=== PATIENT | female | born 1995 | race Caucasian/White ===

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

== ENCOUNTER → 2017-05-18 | Outpatient (CLI) | payer BC ==
--- NOTE | 2017-05-18 14:50 | ECHOCARDIOGRAM REPORT ---
*NOTICE TO RECEIVING CONSTITUTION PARTY AGENCY This information is strictly Confidential and protected under [place] law. [place] law prohibits you from making any further disclosure of this information unless further disclosure is expressly permitted by the written consent of the person to whom it pertains or is authorized by law. A general authorization for the release of medical or other information is not sufficient for this purpose. Hospital accepts no responsibility if the information is made available to any other person, INCLUDING THE PATIENT. Interpretation Summary * Name: MELISSA BAIRES Study Date: 05/18/2017 12:57 PM BP: 123/66 mmHg * Patient Location: [facility] HR: 83 * : 1995 (M/d/yyyy) Gender: Female Height: 66 in * Age: 22 yrs Ethnicity: [place] Weight: 130 lb * Ordering Physician: Familia Pereira * Referring Physician: Familia Pereira * Performed By: Ciara Munoz * * Reason For Study: MURMURS, CHEST PAIN * BSA: 1.7 m2 * This was essentially a normal study. * -- Conclusions -- * Left ventricular systolic function is normal. * Normal diastolic function * The aortic valve is not well visualized. Procedure Details * A complete two-dimensional transthoracic echocardiogram was performed (2D, M-mode, Doppler and color flow Doppler). Left Ventricle * The left ventricle is normal in size. * There is normal left ventricular wall thickness. * Ejection Fraction = >70 %. * Left ventricular systolic function is normal. * Normal diastolic function * The left ventricular wall motion is normal. Right Ventricle * The right ventricle is normal in size and function. Atria * The left atrial size is normal. * Right atrial size is normal. Mitral Valve * The mitral valve anatomy is normal. * There is no mitral regurgitation noted. Tricuspid Valve * The tricuspid valve anatomy is normal. * Significant tricuspid regurgitation is absent. Aortic Valve * The aortic valve is not well visualized. * No hemodynamically significant valvular aortic stenosis. * There is no significant aortic regurgitation. Great Vessels * The aortic root is normal size. * The aortic root and proximal ascending aorta are normal sized. Pericardium/Pleural * There is no pericardial effusion. MMode 2D Measurements and Calculations IVSd 0.75 cm IVSs 1.2 cm LVIDd 4.0 cm LVIDs 2.2 cm LVPWd 0.75 cm LVPWs 1.4 cm IVS/LVPW 1.0 FS 44.3 % EDV(Teich) 70.3 ml ESV(Teich) 16.8 ml EF(Teich) 76.1 % EDV(cubed) 64.3 ml ESV(cubed) 11.1 ml EF(cubed) 82.8 % % IVS thick 54.1 % % LVPW thick 91.2 % LV mass(C)d 86.1 grams LV mass(C)dI 51.7 grams/m\S\2 LV mass(C)s 84.6 grams LV mass(C)sI 50.8 grams/m\S\2 CO(Teich) 4.3 l/min CI(Teich) 2.6 l/min/m\S\2 SV(Teich) 53.5 ml SI(Teich) 32.1 ml/m\S\2 CO(cubed) 4.3 l/min CI(cubed) 2.6 l/min/m\S\2 SV(cubed) 53.2 ml SI(cubed) 32.0 ml/m\S\2 ACS 1.6 cm LA dimension 2.5 cm asc Aorta Diam 2.2 cm LVOT diam 1.7 cm LVOT area 2.2 cm\S\2 LVAd ap4 19.4 cm\S\2 LVLd ap4 6.5 cm EDV(MOD-sp4) 49.4 ml LVAs ap4 7.9 cm\S\2 LVLs ap4 4.3 cm ESV(MOD-sp4) 12.5 ml EF(MOD-sp4) 74.7 % LVAd ap2 22.3 cm\S\2 LVLd ap2 6.6 cm EDV(MOD-sp2) 63.9 ml LVAs ap2 9.1 cm\S\2 LVLs ap2 4.3 cm ESV(MOD-sp2) 16.0 ml EF(MOD-sp2) 75.0 % CO(MOD-sp4) 3.0 l/min CI(MOD-sp4) 1.8 l/min/m\S\2 SV(MOD-sp4) 36.9 ml SI(MOD-sp4) 22.2 ml/m\S\2 CO(MOD-sp2) 3.8 l/min CI(MOD-sp2) 2.3 l/min/m\S\2 SV(MOD-sp2) 47.9 ml SI(MOD-sp2) 28.8 ml/m\S\2 Doppler Measurements and Calculations MV E max tarah 117.9 cm/sec MV A max tarah 58.7 cm/sec MV E/A 2.0 MV dec time 0.20 sec Ao V2 max 127.0 cm/sec Ao max PG 6.5 mmHg Ao max PG (full) 0.43 mmHg LESIA(V,A) 2.1 cm\S\2 LESIA(V,D) 2.1 cm\S\2 LV V1 max PG 6.0 mmHg LV V1 max 122.7 cm/sec PA V2 max 83.4 cm/sec PA max PG 2.8 mmHg
== END | disposition home or self-care (01) ==
LOC: C.CPL 12:47
PROVIDERS: ATTEND Family Medicine
DX: R01.1 Cardiac murmur, unspecified (principal); R07.89 Other chest pain